=== PATIENT | female | born 1940 | race Caucasian/White ===

== ENCOUNTER 2023-09-19 15:25 | Inpatient (IN) | payer OTHER, SELFPAY ==
[2023-09-19] VITALS (8 sets, daily range): BP systolic 104–136; BP diastolic 58–86; BMI 21.9
[2023-09-19 11:08] LABS: Glucose - Point of Care 94 mg/dl (70-99)
--- NOTE | 2023-09-19 11:08 | ED.GENMED ---
History of Present Illness
General
Chief Complaint: Change in Mental Status
Source: patient, records and other (Bedside RN bedside RN)
Time Seen by Provider: 09/19/23 10:57
History of Present Illness
History of Present Illness:
This patient is an 83-year-old female who presents emergency department via medics from home. She has a history of dementia and therefore history is somewhat limited. Prior records were reviewed. As per bedside RN, she was given report that
patient had a fall 2 days ago. She is not on anticoagulants. Is unclear if she sought medical care at that time. For the last day and a half patient has been noted to be altered with drowsiness and mumbling. Patient denies any specific
complaints here although she gives just one-word answers to my questions and does not fully follow all commands.
Past History
Past History
ED Past Medical History: CAD, Hypothyroidism and Other (diverticulitis, dementia)
ED Past Surgical History: None
Social History
Tobacco: Non-smoker
Alcohol: None
Drug: None
Personal:
Living: with family
Family History
Family History: Other
Phy Exam
Physical Exam
Physical Exam:
GENERAL: Awake but drowsy, in no apparent distress
EYE: pupils equal and reactive, no objective photophobia, no deviation noted but does not follow commands to demonstrate EOMI intact
NECK: Supple, no significant adenopathy, no midline tenderness.
ENT: o/p clr, mm dry, there is a growth noted at the hard palate, resolving bruising noted in the superior aspect of the periorbital area bilaterally otherwise no signs of head or facial trauma noted on exam
CARDIAC: Regular rate and rhythm .
LUNGS: Clear breath sounds bilaterally, no acute respiratory distress, no wheezes/rales/rhonchi
ABDOMEN: Soft, without focal tenderness, no r/g
NEUROLOGICAL: awake but drowsy, does not follow some commands (ex f to n), maee but motor 3-3+/5 throughout, sens intact, speech soft but clear
SKIN: Warm and dry, skin intact.
MUSCULOSKELETAL: No edema, well perfused.
PSYCH: drowsy but appropriate
Course
Orders/Labs/Results
Orders:
Orders
09/19/23 Breakfast
Regular
At Your Request: Full Participation
Does patient need a safe tray?: No
Comment: Allow oral intake if awake - Required to be fed
09/19/23 10:58
Electrocardiogram (*1) Urgent
Reason for Study: CAD
09/19/23 10:59
EKG- Treatment ONCE
09/19/23 11:07
CT Cervical Spine W/o Iv Contr Stat
Comment:
Reason For Exam: fall
CT Head W/o Iv Contrast Urgent
Comment:
Reason For Exam: reported fall
09/19/23 11:20
Cardiac Monitoring- Treatment ONCE
Pelvis, 1 or 2 Views CR [CR Pelvis - 1 Or 2 Views ] Urgent
Comment:
Reason For Exam: L ant bruising
09/19/23 11:32
Complete Blood Count/With Diff Urgent
Comprehensive Metabolic Panel Urgent
Troponin I Urgent
09/19/23 12:10
Urinalysis Reflex To Culture Urgent
Date Specimen was Collected: 09/19/23
Time Specimen was Collected: 12:08
Urine Microscopic Reflex Cult Urgent
Urine Culture Urgent
VIKAS Source: U
Specimen Description:
Date Specimen was Collected: 09/19/23
Time Specimen was Collected: 12:08
09/19/23 13:45
Cefepime HCl [Maxipime] 2,000 mg IV NOW STA
09/19/23 14:51
Admit/Transfer Patient As Directed
Co-Sign Provider:
Level of Care: Inpatient admission
Assign to:: Medical/Surgical
Physician / Group: Haresh
Diagnosis: TME/UTI
Reason for Hospitalization: IV abx
Expected length of stay greater than two midnights?: Yes
ELOS- Estimated Length of Stay in days: 3
I certify the patient meets the requirements for IP care: Yes
PRN Pain Medication Management As Directed
May give lesser potent ordered pain med per pt: Yes
preference::
Protocol:: Medication orders for pain may be administered in a
manner that supports deferring to patient preference
when the pt is:
- Requesting an ordered lesser potent pain medication.
Least to most potent pain medications are defined
as: acetaminophen < NSAID < tramadol < opioids
(morphine, oxycodone, hydromorphone).
- Requesting a lesser dose of the same medication IF
ORDERED.
- Requesting a less intrusive route of administration
if both routes are prescribed by the provider (PO <
IV).
09/19/23 14:53
Code Status As Directed
Resuscitation Status: Full Code
09/19/23 16:51
0.9% Sodium Chloride 1000 ml [Nss] 1,000 ml IV 75 mls/hr
Acetaminophen [Tylenol] 650 mg PO Q6HPRN PRN
Gabapentin [Neurontin] 100 mg PO TID
Lorazepam [Ativan] 0.5 mg PO TID
Risperidone [Risperdal] 0.25 mg PO TID
09/19/23 16:51
Activity As Directed
Activity Level: Out of Bed- Chair
I&O [Intake/ Output] As Directed
Frequency: q12h
Pneumatic Compression Sleeves As Directed
Type: Knee high
Vital Signs As Directed
Frequency: Per unit guidelines
Weight As Directed
Frequency: Daily
Ot Eval And Treat Routine
Pt Eval And Treat Routine
Activity Level: Out of Bed-Early Mobility
DX Deep Vein Thrombosis Video Routine
09/19/23 20:00
CefTRIAXone [Rocephin] 1,000 mg IV Q24H
09/19/23 22:00
Atorvastatin [Lipitor] 20 mg PO HS
Mirtazapine [Remeron] 15 mg PO HS
09/20/23 06:00
Levothyroxine [Synthroid] 50 mcg PO DAILY @ 0600
09/20/23 08:00
Pantoprazole [Protonix] 40 mg PO DAILY
Polyethylene Glycol Powder [Miralax] 17 grams PO DAILY
09/20/23 08:25
Basic Metabolic Panel IN AM
Complete Blood Count/No Diff IN AM
09/20/23 11:00
Lactobac/Bifidobac [Visbiome] 1 cap PO DAILY@1100
Abnormal Lab Results
09/19/23 09/19/23
11:32 12:10
RBC 3.71 L 10^6/uL
(4.20-5.40)
Hgb 11.5 L g/dL
(12.0-16.0)
Hct 34.9 L %
(37.0-47.0)
Abs Immat Gran (auto) 0.1 H 10^3/uL
(0-0.05)
Absolute Neuts (auto) 8.3 H 10^3/uL
(1.4-6.5)
Absolute Lymphs (auto) 0.8 L 10^3/uL
(1.2-3.4)
Absolute Monos (auto) 0.9 H 10^3/uL
(0.1-0.6)
Immature Gran % 0.8 H %
(0-0.5)
Neutrophils % 81.0 H %
(42.2-75.2)
Lymphocytes % 8.1 L %
(20.5-51.1)
Chloride 113 H mmol/L
(98-107)
Total Protein 5.8 L g/dl
(6.3-8.2)
Albumin 3.2 L g/dl
(3.5-5.0)
Urine Ketones Trace A
(Negative)
Ur Occult Blood Reflex Trace A
(Negative)
Urine Bilirubin 1+ A
(Negative)
Urine Urobilinogen 2+ A
(Neg - 1+)
Leukocyte Esterase Rfl 1+ A
(Negative)
Urine RBC 3-6 A /HPF
(0-2)
Urine WBC (Reflex) 21-25 A /HPF
(0-5)
Urine Bacteria (Reflex) Many A
(Negative)
09/19/23 11:32
09/19/23 11:32
Vital Signs
Initial and Last Documented VS:
Initial Vital Signs
Temp Pulse Resp BP Pulse Ox
98.3 F 96 16 132/74 95
09/19/23 11:04 09/19/23 11:04 09/19/23 11:04 09/19/23 11:04 09/19/23 11:04
Last Documented Vital Signs
Temp Pulse Resp BP Pulse Ox
99.1 F 67 18 126/70 99
09/20/23 08:00 09/20/23 08:00 09/20/23 08:00 09/20/23 08:00 09/20/23 08:00
*Critical Care Note
Total Time (30-74mins, 75-104mins- exclusive of procedures): Not Applicable
Update Note
Update Note:
Patient presents to the Emergency Department with ___reported fall
Number and Complexity of Problems Addressed at the Encounter
� Chronic conditions affecting care:
� Acute Exacerbation and/or Progression of Chronic Illness:
� Differential Diagnosis includes: But not limited to electrolyte disorder, dehydration, intracranial hemorrhage, subdural hematoma, epidural hematoma, CVA, etc. etc.
Amount and/or Complexity of Data to be Reviewed and Analyzed
� I performed an independent evaluation of and my interpretation is:
EKG: Read by me, normal sinus rhythm, normal rate, normal axis, no acute ischemia
CT:No acute osseous abnormality of the cervical spine. nad head
Xrays:
Laboratory Studies:nl wbc with elevation of neutrophils, u/a suspic for infx
Other:
� Review of other/old records reveals: Discharge summary from June 2022 reviewed at that time patient was admitted for a supracondylar fracture, treatment was conservative
� Clinical information was obtained by an independent historian: and son now at bedside. They state that 2 mornings ago he was trying to assist her to the bathroom and she fell down, striking her head on the trim of the
door. No loss of consciousness. He was able to get her back up again. Since yesterday morning however he notes increasing global weakness and decreased p.o. intake. She denies any specific complaints to him. He did notice a bruise at the left
anterior pelvic area which he suspects is related to the walker banging into her. He just finished giving her ?2 wks of amoxicillin 500 mg big about one week ago for presumed uti (no ua obtained, urine was 'cloudy')
� Prescriptions/Medications Considered but not given:
� Further testing considered but not performed:
Risk of Complications and/or Morbidity or Mortality of Patient Management
� Social determinants of health affecting care:
� Discussion with other providers (PCP, Hospitalists, Consultants, etc):TT to hospitalist for admission for uti with ms change
� Escalation of care including admission/observation vs risk of discharge considered:
ED Attending Note
-
Portions of this chart may have been created with voice recognition software.� Occasional wrong word or��sound alike� substitutions may have occurred due to the inherent limitations of voice recognition software.
Discharge Plan
Departure
Patient Disposition: Admit
Date of Disposition: 09/19/23
Time of Disposition: 13:45
Presentation/result/management discussed w/ accepting MD/DO: Hospitalist
Condition: Fair
Discharge Problem:
Acute UTI
Interventions
Interventions:
*Risk Screen - Suicide Last Done: 09/19/23 11:05
*General Assessment Last Done: 09/19/23 11:05
*Neglect/Abuse Screening Last Done: 09/19/23 11:05
ED- Fall Risk Assessment Last Done: 09/19/23 16:35
*ED COVID-19 Vaccine History Last Done: 09/19/23 11:05
*Nursing Disposition Last Done: 09/19/23 16:35
ED- Pulmonary Assessment Last Done: 09/19/23 16:35
ED-Psychological Assessment Last Done: 09/19/23 16:35
ED- Neurological Assessment Last Done: 09/19/23 11:06
ED- Cardiac Assessment Last Done: 09/19/23 16:35
ED Swallowing Screen Last Done: 09/19/23 11:06
Discharge Date and Time
Discharge Date/Time: 09/19/23 16:41
[2023-09-19 11:42] LABS: % Basophils 0.4 % (0-2); % Eosinophils 0.8 % (0-6); % Immature Granulocytes 0.8 % (0-0.5); % Lymphocytes 8.1 % (20.5-51.1); % Monocytes 8.9 % (1.7-9.3); Absolute Eosinophils 0.1 10^3/uL (0-0.7); Absolute Immature Granulocytes 0.1 10^3/uL (0-0.05); Absolute Lymphocytes 0.8 10^3/uL (1.2-3.4); Absolute Monocytes 0.9 10^3/uL (0.1-0.6); Absolute Neutrophils 8.3 10^3/uL (1.4-6.5); Hematocrit 34.9 % (37.0-47.0); Hemoglobin 11.5 g/dL (12.0-16.0); Mean Corpuscular Volume 94.1 fL (81.0-99.0); Mean Platelet Volume 9.5 fL (7.4-10.4); Nucleated Red Blood Cells % 0 %; Platelet Count 381 10^3/uL (130-400); Red Blood Cell Count 3.71 10^6/uL (4.20-5.40); Red Cell Dist. Width 12.6 % (11.5-14.5); White Blood Cell Count 10.2 10^3/uL (4.8-10.8)
[2023-09-19 12:03] LABS: ALT (SGPT) 11 U/L (0-35); AST (SGOT) 24 U/L (14-36); Albumin 3.2 g/dl (3.5-5.0); Alkaline Phosphatase 101 U/L (38-126); Blood Urea Nitrogen 16 mg/dl (7-17); Calcium 8.8 mg/dl (8.4-10.2); Carbon Dioxide 23 mmol/L (22-30); Chloride 113 mmol/L (98-107); Glucose 97 mg/dl (70-99); Potassium 3.6 mmol/L (3.5-5.1); Sodium 144 mmol/L (135-145); Total Bilirubin 0.9 mg/dl (0.2-1.3); Total Protein 5.8 g/dl (6.3-8.2); eGFR > 60.00
[2023-09-19 12:04] LABS: Troponin I < 0.012 ng/ml
[2023-09-19 12:28] LABS: Urine Albumin Trace (Neg - Trace); Urine Bilirubin 1+ (Negative); Urine Character Clear (Clear); Urine Color Yellow; Urine Glucose Negative (Negative); Urine Ketone Trace (Negative); Urine Leukocyte 1+ (Negative); Urine Nitrite Negative (Negative); Urine Occult Blood Trace (Negative); Urine Urobilinogen 2+ (Neg - 1+)
[2023-09-19 13:11] LABS: Urine Squamous Cell 0-2 /LPF (Few)
[2023-09-19 13:12] LABS: Urine Bacteria Many (Negative); Urine White Cell 21-25 /HPF (0-5)
[2023-09-19] MEDS: MAXIPIME 2000 MG IV (13:55)
--- NOTE | 2023-09-19 14:21 | HPS.HSE ---
Addendum entered and electronically signed by Breanna Hutson MD 09/19/23 15:38:
I saw and examined the patient.
The PICKING MACHINE OPERATOR HELPER or PA's note was reviewed and I agree with the note.
Comment:
83 y/o female with a PMH of advanced dementia, hypothyroid, and history of frequent falls who reports to the ED for change in mental status. History is limited by patient's history of dementia. Patient's provided the history. He states that
over the past couple days she has been eating and drinking less. Yesterday she refused to take some of her medications. She has also had a change in mental status, been more lethargic, and been having difficulty walking. She recently just finished a
14 day course of amoxicillin last week for a UTI. Her states that 2 days ago she fell and hit heard head on the way to the bathroom. Her says she has been using a bedside commode since the fall. There are no reports of fevers.
Physical Exam
General: No Apparent Distress and Comfortable
HEENT: NormoCephalic and Other (Bruising over bilateral eyebrows). Dry MM>
Respiratory: Clear and Non Labored Respirations
Cardiac: S1/S2 and Regular Rhythm
GI: Soft and Non Tender
Rectal: No bleeding
Musculoskeletal: No Clubbing, No Cyanosis and No Edema
Skin: Warm and Dry
Neuro: Sedated (Opens eyes to name)
TME secondary to dehydration and possible worsening dementia and UTI
Give IVF
Supportive care
MOntior temp curve
-Continue ceftriaxone
-Await urine culture
CT head no acute findings.
Severe Dementia with prior history of sun-downing
-Continue lorazepam, risperidone and mirtazapine as prior to admission, but hold for sedation
Patient is very limited with 100% dependency on her caregiver which is the in this case. Most of the time, she has to be fed, cleaned and groomed at home by her . seems to be willing to continue care at home and wanting to
provide 24/7 private care at home. reported that his family would respect his decisions to maintain care at home.
Will consult social service to provide help as possible
From previous admission, this placement issue was brought before and decision was made by family to take patient home. reported that he was not happy with care at SNF before because of poor hygiene and care experience at nursing homes.
Hyperlipidemia
-Continue statin
Hypothyroidism
-Continue levothyroxine
GERD
-Continue Protonix
Osteoarthritis
-Continue gabapentin for pain
DVT proph: SCDs
Code Status: Full Code
Total time spent to see the patient, examine the patient on the floor, review data and lab results, discuss treatment plan with patient, at bed side, ER doctor, nursing staff around 75 minutes
Original Note:
Family Physician
-
Family Physician: Tony Barber
Chief Complaint
-
Weakness and Lethargy
History of Present Illness
Patient is an 83 y/o female with a PMH of advanced dementia, hypothyroid, and history of frequent falls who reports to the ED for change in mental status. History is limited by patient's history of dementia. Patient's provided the history.
He states that over the past couple days she has been eating and drinking less. Yesterday she refused to take some of her medications. She has also had a change in mental status, been more lethargic, and been having difficulty walking. She recently
just finished a 14 day course of amoxicillin last week for a UTI. Her states that 2 days ago she fell and hit heard head on the way to the bathroom. Her says she has been using a bedside commode since the fall. There are no reports
of fevers.
Medical History
Past Medical History
Past Medical History: Reports Other
Additional Past Medical History:
Severe Dementia
Hyperlipidemia
Hypothyroidism
GERD
Past Surgical History: Reports Other
Additional Past Surgical History:
Bilateral Breast Surgery
Vein Stripping Right Leg
Exploratory Laparotomy
Social History
Tobacco: Non-smoker
Alcohol: None
Personal:
Living: With Family
Family History
Family History: Not pertinent
Allergies / Home Medications
Allergies reflects when Allergies were last updated in [employer].
Home Medications with original date entered in [employer]
Allergy/Medication List:
Allergies
Allergy/AdvReac Type Severity Reaction Status Date / Time
codeine [Codeine] Allergy Nausea Verified 07/08/22 15:04
levofloxacin [From Levaquin] Allergy diarrhea Verified 07/08/22 15:04
metronidazole [From Flagyl] Allergy diarrhea Verified 07/08/22 15:04
Metronidazole HCl Allergy diarrhea Verified 07/08/22 15:04
[From Flagyl]
propoxyphene HCl Allergy upset Verified 07/08/22 15:04
[From Darvon] stomach
Home Medications
aspirin 81 mg tablet,delayed release 81 mg PO HS Blood clot prevention/tx 05/25/14
levothyroxine 50 mcg tablet 50 mcg PO DAILY Thyroid 05/25/14
sucralfate 1 gram tablet 1 g PO BID@1100,1600 Gastrointestinal issue 07/16/20
Lactobac no.2-Bifidobac no.1-S. thermo 112.5 billion cell capsule (Visbiome) 1 cap PO DAILY@1100 Supplement 07/08/22
calcium carbonate (Calcium 600) 600 mg PO DAILY@1100 Supplement 07/08/22
simvastatin 40 mg tablet (Zocor) 40 mg PO HS High cholesterol 07/08/22
Unknown Bowel Med 1 dose PO DAILYPRN PRN constipation, no bm 2 days 09/19/23
acetaminophen 325 mg tablet (Tylenol) 650 mg PO Q6HPRN PRN mild pain 09/19/23
gabapentin 100 mg capsule 100 mg PO TID Pain 09/19/23
lorazepam 0.5 mg tablet 0.5 mg PO TID Mental Health/Anxiety 09/19/23
mirtazapine 15 mg tablet 15 mg PO HS Neurological Condition 09/19/23
omeprazole 20 mg capsule,delayed release 20 mg PO DAILY Gastrointestinal Issue 09/19/23
risperidone 0.25 mg tablet 0.25 mg PO TID Neurological Condition 09/19/23
Review of Systems
-
Unable to obtain full review of systems at this time due to: Dementia
Physical Exam
Vital Signs
Vital Signs
Temp Pulse Resp BP Pulse Ox
98.3 F 75 16 124/63 95
09/19/23 11:04 09/19/23 14:01 09/19/23 14:07 09/19/23 14:01 09/19/23 14:07
Physical Exam
General: No Apparent Distress and Comfortable
HEENT: NormoCephalic and Other (Bruising over bilateral eyebrows)
Respiratory: Clear and Non Labored Respirations
Cardiac: S1/S2 and Regular Rhythm
GI: Soft and Non Tender
Rectal: Deferred by Provider
Musculoskeletal: No Clubbing, No Cyanosis and No Edema
Skin: Warm and Dry
Neuro: Sedated (Opens eyes to name)
Laboratory Results
-
09/19/23 11:32
09/19/23 11:32
Laboratory Results
Total Bilirubin 0.9 mg/dl (0.2-1.3) 09/19/23 11:32
AST 24 U/L (14-36) 09/19/23 11:32
ALT 11 U/L (0-35) 09/19/23 11:32
Alkaline Phosphatase 101 U/L (38-126) 09/19/23 11:32
Troponin I < 0.012 ng/ml 09/19/23 11:32
Data Reviewed
-
Diagnostic Radiology: Report Reviewed by me
CT Scan: Report Reviewed by me
Lab Data: Labs Reviewed by me
Impression/Plan
-
TME secondary to UTI
-Continue ceftriaxone
-Await urine culture
Severe Dementia with prior history of sun-downing
-Continue lorazepam, risperidone and mirtazapine as prior to admission, but hold for sedation
Hyperlipidemia
-Continue statin
Hypothyroidism
-Continue levothyroxine
GERD
-Continue Protonix
Osteoarthritis
-Continue gabapentin for pain
DVT proph: SCDs
Code Status: Full Code
[2023-09-19] MEDS: NSS 1000 IV (18:03)
[2023-09-19] MEDS: NEURONTIN 100 MG PO ×2 (18:03→21:06)
[2023-09-19] MEDS: RISPERDAL 0.25 MG PO ×2 (18:03→21:06)
[2023-09-19] MEDS: ATIVAN 0.5 MG PO ×2 (18:03→21:19)
[2023-09-19] MEDS: STERILE WATER FOR INJECTION 10 ML IV (19:33)
[2023-09-19] MEDS: ROCEPHIN 1000 MG IV (19:33)
[2023-09-19] MEDS: LIPITOR 20 MG PO (21:06)
[2023-09-19] MEDS: REMERON 15 MG PO (21:09)
[2023-09-20] MEDS: SYNTHROID 50 MCG PO (05:28)
[2023-09-20 06:00] VITALS: BMI 21.6
[2023-09-20 08:00] VITALS: BP 126/70
[2023-09-20 08:46] LABS: Hematocrit 35.7 % (37.0-47.0); Mean Corp Hgb Conc. 33.6 g/dL (33.0-37.0); Mean Corpuscular Hgb 31.8 pg (27.0-31.0); Mean Corpuscular Volume 94.7 fL (81.0-99.0); Mean Platelet Volume 9.7 fL (7.4-10.4); Platelet Count 388 10^3/uL (130-400); Red Blood Cell Count 3.77 10^6/uL (4.20-5.40); Red Cell Dist. Width 12.6 % (11.5-14.5); White Blood Cell Count 12.9 10^3/uL (4.8-10.8)
[2023-09-20 09:07] LABS: Blood Urea Nitrogen 14 mg/dl (7-17); Calcium 8.9 mg/dl (8.4-10.2); Carbon Dioxide 19 mmol/L (22-30); Chloride 114 mmol/L (98-107); Estimated Creatinine Clearance 52 ml/min; Glucose 93 mg/dl (70-99); Sodium 145 mmol/L (135-145); eGFR > 60.00
[2023-09-20] MEDS: NEURONTIN 100 MG PO (09:36)
[2023-09-20] MEDS: MIRALAX 17 GRAMS PO (09:37)
[2023-09-20 09:40] VITALS: BP 117/96; PULSE 69; O2SAT 96
[2023-09-20] MEDS: NSS 1000 IV ×2 (09:40→22:14)
[2023-09-20] MEDS: RISPERDAL PO (09:50)
[2023-09-20] MEDS: ATIVAN PO (09:50)
[2023-09-20 09:52] VITALS: BP 117/96; PULSE 69; O2SAT 96
--- NOTE | 2023-09-20 11:11 | W.PN.HOSP.TC ---
Today's Communication/Plan
-
c/w care for UTI and encephalopathy
c/w IVF
Encourage oral intake
c/w bladder scan
Consulted social service
Assessment / Plan
Assessment / Plan
Physical Exam
General: No Apparent Distress and Comfortable
HEENT: Normocephalic and Other (mild bruising over bilateral eyebrows). Dry MM.
Respiratory: Clear and Non Labored Respirations
Cardiac: S1/S2 and Regular Rhythm
GI: Soft and Non Tender
Rectal: No bleeding
Musculoskeletal: No Clubbing, No Cyanosis and No Edema
Skin: Warm and Dry
Neuro: Sedated (Opens eyes to name), did not follow commands.
Psych: lethargic
#TME secondary to dehydration/ worsening dementia and UTI
Still lethargic
c/w mild IVF
Encourage oral intake
c/w Supportive care
Monitor temp curve
-Continue ceftriaxone
-Await urine culture and blood culture
CT head no acute findings.
# UTI with E coli
Prior UTI with same microbe
will c/w IV
Add bladder scan to rule out retention
Normal renal function
c/w mild IVF
#Severe Dementia with prior history of sun-downing
Failure to thrive
-Continue lorazepam, risperidone and mirtazapine as prior to admission, but hold for sedation
Patient is very limited with 100% dependency on her caregiver which is the in this case. Most of the time, she has to be fed, cleaned and groomed at home by her . seems to be willing to continue care at home and wanting to
provide 24/7 private care at home. reported that his family would respect his decisions to maintain care at home.
Will consult social service to provide help as possible
From previous admission, this placement issue was brought before and decision was made by family to take patient home. reported that he was not happy with care at SNF before because of poor hygiene and care experience at nursing homes.
# Severe protein-caloric malnutrition
Chronic poor oral intake, helps feeding her, related to dementia
# Multiple falls, recurrent head injuries from falls
consulted social service
expressed his intention to continue care at home with private healthcare economics manager. He reported that his children are supportive of his decisions.
Hyperlipidemia
-Continue statin
Hypothyroidism
-Continue levothyroxine
GERD
-Continue Protonix, change to IV
Osteoarthritis
-Continue gabapentin for pain
DVT proph: SCDs
Code Status: Full Code
Total time spent to see the patient, examine the patient on the floor, review data and lab results, discuss treatment plan with patient, nursing staff around 55 minutes
Anticipated Discharge: > 48 hours
Subjective/Interval History
-
Date of Service: September 20, 2023
Still weak and mildly febrile
Objective Data
-
Labs:
Laboratory Results
09/20/23
08:25
WBC 12.9 H
Hgb 12.0
Hct 35.7 L
Plt Count 388
Sodium 145
Potassium 4.0
Chloride 114 H
Carbon Dioxide 19 L
BUN 14
Creatinine 0.6
Glucose 93
Calcium 8.9
Vital Signs:
Vital Signs
Temp Pulse Resp BP Pulse Ox
99.1 F 67 18 126/70 99
09/20/23 08:00 09/20/23 08:00 09/20/23 08:00 09/20/23 08:00 09/20/23 08:00
I&O
09/19/23 09/20/23 09/21/23
06:59 06:59 06:59
Intake Total 900 / 900
Balance 900 / 900
--- NOTE | 2023-09-20 11:42 | CM ---
Addendum entered by Carolann Reyes 09/20/23 14:27:
CM spoke with patients daughter, Patricia, discussed recommendation of 20/09 care. Patricia reports patient has caregivers 4-5 days a week, 4 hours a day. Patricia is agreeable to receive a list of private duty caregivers, in unsure how quickly she can get it
set up. Patricia reports her father is not agreeable to send patient to SNF as patients last experience was horrible. Patricia reports she is currently in a boot as she broke her ankle, reports she cannot lift her mother if she were to fall. Patricia
understands recommendation of 20/09 care. CM emailed list to [email or web address]. CM provided list to patients along with brochures for private care.
Original Note:
Patient seen asleep bedside, initial assessment completed by . Patient resides with in a multiple story home, patient resides on the first floor, two steps to enter. Patient has a commode and RW at home, has private duty caregivers
7am-7pm, is looking into evening caregivers. reports that patient was in rehab at [facility] and he will never send patient back to any SNF. Patients PCP Dr. Barber, pharmacy [facility] in [place], confirms prescription
coverage. reports they have a daughter who lives in [place] who comes 1-2 times a week, have a son who is a support as well. reports daughter is taking care of all caregiver services. CM discussed with PT recommendations of
24/7 care. CM will call daughter to provide information for private caregiver if needed. CM will continue to follow for all discharge planning needs.
Plan; return home with caregivers and family support.
[2023-09-20] MEDS: NSS (PRESERVATIVE FREE) 10 ML IV (11:46)
[2023-09-20] MEDS: PROTONIX IV 40 MG IV (11:48)
[2023-09-20] MEDS: VISBIOME PO (11:48)
[2023-09-20 16:10] VITALS: BP 133/72
[2023-09-20] MEDS: RISPERDAL 0.25 MG PO ×2 (17:13→22:14)
[2023-09-20] MEDS: ATIVAN 0.5 MG PO ×2 (17:13→22:14)
[2023-09-20] MEDS: SENNA SYRUP 8.8 MG PO (17:23)
[2023-09-20] MEDS: ROCEPHIN 1000 MG IV (20:05)
[2023-09-20] MEDS: STERILE WATER FOR INJECTION 10 ML IV (20:05)
[2023-09-20] MEDS: TYLENOL 650 MG PO (20:19)
[2023-09-20] MEDS: REMERON 15 MG PO (22:14)
[2023-09-20] MEDS: LIPITOR 20 MG PO (22:14)
[2023-09-20 23:11] VITALS: BP 117/58
[2023-09-21] MEDS: SYNTHROID 50 MCG PO (04:52)
[2023-09-21 05:03] VITALS: BMI 22.2
[2023-09-21 07:00] VITALS: BP 124/73
[2023-09-21] MEDS: PROTONIX IV 40 MG IV (08:12)
[2023-09-21] MEDS: RISPERDAL 0.25 MG PO ×2 (08:13→21:40)
[2023-09-21] MEDS: MIRALAX 17 GRAMS PO (08:13)
[2023-09-21] MEDS: NSS (PRESERVATIVE FREE) 10 ML IV (08:13)
[2023-09-21] MEDS: ATIVAN 0.5 MG PO (08:13)
--- NOTE | 2023-09-21 09:01 | W.PN.HOSP.TC ---
Today's Communication/Plan
-
c/w comfort feeding as tolerated
c/w IV Rocephin
c/w mild IVF
Trial of Senna
Assessment / Plan
Assessment / Plan
Physical Exam
General: No Apparent Distress and Comfortable
HEENT: Normocephalic and Other (mild bruising over bilateral eyebrows). Dry MM.
Respiratory: Clear and Non Labored Respirations
Cardiac: S1/S2 and Regular Rhythm
GI: Soft and Non Tender
Rectal: No bleeding
Musculoskeletal: No Clubbing, No Cyanosis and No Edema
Skin: Warm and Dry
Neuro: more alert today, almost non-verbal, did not follow commands.
Psych: less lethargic
#TME secondary to dehydration/ worsening dementia and UTI
Still lethargic
c/w mild IVF
Encourage oral intake
c/w Supportive care
Monitored temp curve, no fevers today
-Continue ceftriaxone
CT head no acute findings.
# UTI with E coli
Prior UTI with same microbe
will c/w IV Rocephin
Added bladder scan to rule out retention
Normal renal function
c/w mild IVF
# Constipation, c/w Senna
#Severe Dementia with prior history of sun-downing
Failure to thrive
-Continue lorazepam, risperidone and mirtazapine as prior to admission, but hold for sedation
Patient is very limited with 100% dependency on her caregiver which is the in this case. Most of the time, she has to be fed, cleaned and groomed at home by her . seems to be willing to continue care at home and wanting to
provide 24/7 private care at home. reported that his family would respect his decisions to maintain care at home.
Will consult social service to provide help as possible
From previous admission, this placement issue was brought before and decision was made by family to take patient home. reported that he was not happy with care at SNF before because of poor hygiene and care experience at nursing homes.
# Severe protein-caloric malnutrition
Chronic poor oral intake, helps feeding her, related to dementia
# Multiple falls, recurrent head injuries from falls
consulted social service
expressed his intention to continue care at home with private health care / medical job titles. He reported that his children are supportive of his decisions.
Hyperlipidemia
-Continue statin
Hypothyroidism
-Continue levothyroxine
GERD
-Continue Protonix, change to IV
Osteoarthritis
-Continue gabapentin for pain
DVT proph: SCDs
Code Status: Full Code
Total time spent to see the patient, examine the patient on the floor, review data and lab results, discuss treatment plan with patient, nursing staff around 55 minutes
Anticipated Discharge: 24 - 48 hours
Subjective/Interval History
-
Date of Service: September 21, 2023
No pain issues but pt is almost non-verbal
No fevers
Objective Data
-
Vital Signs:
Vital Signs
Temp Pulse Resp BP Pulse Ox
97.1 F 85 12 124/73 98
09/21/23 07:00 09/21/23 07:00 09/21/23 07:00 09/21/23 07:00 09/21/23 07:00
I&O
09/20/23 09/21/23 09/22/23
06:59 06:59 06:59
Intake Total 900 / 900 1220 / 1220
Balance 900 / 900 1220 / 1220
[2023-09-21] MEDS: NSS 1000 IV (11:28)
[2023-09-21] MEDS: VISBIOME 1 CAP PO (11:29)
--- NOTE | 2023-09-21 13:01 | CM ---
Patient seen bedside with spouse, discussed VN referral for additional services when patient is stable for discharge, spouse agreeable to VN. Spouse reports he has not spoken to his daughter yet in regards to 24/7 care. CM spoke with patients
daughter, Patricia, reports she has made multiple calls to private care agencies, is awaiting return call. Patients daughter inquiring about Hospice and if patient would be appropriate, TT sent to Hospitalist. CM will continue to follow for all
discharge planning needs.
Plan; home with spouse, needs 24/7 care set up, referral to [facility].
--- NOTE | 2023-09-21 14:30 | VNURNOTE ---
Home Health Liaison spoke with patient's daughter Patricia to discuss [facility] nurse/therapy, visits, schedule and homebound status. She is agreeable and understands that visits at home will be 2-3 x per week to assess and teach medical management. [facility]
contact number provided. Daughter is aware that [facility] will contact them for start of care within a few days after discharge from . Daughter also considering hospice and setting up 24h caregivers. CM aware. [facility] referral completed in [facility].
[2023-09-21 14:34] VITALS: BP 119/57; PULSE 71; O2SAT 97
[2023-09-21 15:18] VITALS: BP 117/70
[2023-09-21] MEDS: ATIVAN PO (17:40)
[2023-09-21] MEDS: RISPERDAL PO (17:40)
[2023-09-21] MEDS: STERILE WATER FOR INJECTION 10 ML IV (19:12)
[2023-09-21] MEDS: ROCEPHIN 1000 MG IV (19:12)
[2023-09-21] MEDS: LIPITOR 20 MG PO (21:39)
[2023-09-21] MEDS: REMERON 15 MG PO (21:39)
[2023-09-21] MEDS: ATIVAN 0.25 MG PO (21:39)
[2023-09-21 23:08] VITALS: BP 143/66
[2023-09-22] MEDS: NSS 1000 IV ×2 (01:51→14:03)
[2023-09-22 05:33] VITALS: BMI 22.0
[2023-09-22] MEDS: SYNTHROID 50 MCG PO (05:55)
[2023-09-22 07:00] VITALS: BP 120/62
[2023-09-22] MEDS: NSS (PRESERVATIVE FREE) 10 ML IV (08:27)
[2023-09-22] MEDS: ATIVAN 0.25 MG PO (08:27)
[2023-09-22] MEDS: MIRALAX 17 GRAMS PO (08:27)
[2023-09-22] MEDS: PROTONIX IV 40 MG IV (08:27)
[2023-09-22] MEDS: RISPERDAL PO ×2 (08:28→08:43)
[2023-09-22 08:59] LABS: Hematocrit 37.1 % (37.0-47.0); Hemoglobin 12.7 g/dL (12.0-16.0); Mean Corp Hgb Conc. 34.2 g/dL (33.0-37.0); Mean Corpuscular Hgb 31.7 pg (27.0-31.0); Mean Corpuscular Volume 92.5 fL (81.0-99.0); Mean Platelet Volume 9.6 fL (7.4-10.4); Platelet Count 430 10^3/uL (130-400); Red Blood Cell Count 4.01 10^6/uL (4.20-5.40); Red Cell Dist. Width 12.2 % (11.5-14.5); White Blood Cell Count 11.3 10^3/uL (4.8-10.8)
[2023-09-22 09:44] LABS: Blood Urea Nitrogen 8 mg/dl (7-17); Carbon Dioxide 21 mmol/L (22-30); Chloride 109 mmol/L (98-107); Estimated Creatinine Clearance 52 ml/min; Glucose 84 mg/dl (70-99); Potassium 3.8 mmol/L (3.5-5.1); Sodium 139 mmol/L (135-145); eGFR > 60.00
--- NOTE | 2023-09-22 09:57 | HOSPNOTE ---
Spoke with daughter Patricia and explained hospice and the philosophy. She will speak with her Dad but feels her Dad is quite not ready for hospice. I left my number to call back with any further questions or concerns. Case management aware.
--- NOTE | 2023-09-22 10:16 | W.PN.HOSP.TC ---
Today's Communication/Plan
-
Holding Risperdal and ATC Ativan
c/w IV Abx
Change to IV Ativan PRN
Hospice consult upon dc ( home hospice). Likely dc in am ( Tuesday)
Assessment / Plan
Assessment / Plan
Physical Exam
General: No Apparent Distress and Comfortable
HEENT: Normocephalic and Other (mild bruising over bilateral eyebrows). Dry MM.
Respiratory: Clear and Non Labored Respirations
Cardiac: S1/S2 and Regular Rhythm
GI: Soft and Non Tender
Rectal: No bleeding
Musculoskeletal: No Clubbing, No Cyanosis and No Edema
Skin: Warm and Dry
Neuro: awake, + stiffness, almost non-verbal, did not follow commands.
Psych: less lethargic
#TME secondary to dehydration/ worsening dementia and UTI
Still lethargic and stiffness noted
c/w mild IVF
Stop Risperdal and change Ativan to PRN
Encourage oral intake
c/w Supportive care
Monitored temp curve, no fevers
-Continue ceftriaxone
CT head no acute findings.
# UTI with E coli
Prior UTI with same microbe
will c/w IV Rocephin
Added bladder scan to rule out retention
Normal renal function
c/w mild IVF
# Constipation, c/w Senna
#Severe Dementia with prior history of sun-downing
Failure to thrive
-Continue lorazepam, risperidone and mirtazapine as prior to admission, but hold for sedation
Patient is very limited with 100% dependency on her caregiver which is the in this case. Most of the time, she has to be fed, cleaned and groomed at home by her . seems to be willing to continue care at home and wanting to
provide 24/7 private care at home. reported that his family would respect his decisions to maintain care at home.
Will consult social service to provide help as possible
From previous admission, this placement issue was brought before and decision was made by family to take patient home. reported that he was not happy with care at SNF before because of poor hygiene and care experience at nursing homes.
# Severe protein-caloric malnutrition
Chronic poor oral intake, helps feeding her, related to dementia
# Multiple falls, recurrent head injuries from falls
consulted social service
expressed his intention to continue care at home with private career portals teacher and now agreed to hospice care. He reported that his children are supportive of his decisions.
Hyperlipidemia
-Continue statin
Hypothyroidism
-Continue levothyroxine
GERD
-Continue Protonix, change to IV
Osteoarthritis
-Hold gabapentin due to lethargy
DVT proph: SCDs
Code Status: I d/w , explained the concept of full code/ DNR. Has very poor quality of life with advanced dementia. I do not recommend CPR/chest compressions. According to the , her living wishes included no ventilatory support.
He agreed to do DNR and pursue outpatient hospice care. Discussed with caseworker protective services. said he would be one to make decisions and not the children.
Total time spent to see the patient, examine the patient on the floor, review data and lab results, discuss treatment plan with patient, nursing staff around 55 minutes
Anticipated Discharge: Within 24 hours
Subjective/Interval History
-
Date of Service: September 22, 2023
No fevers.
lethargic
Objective Data
-
Labs:
Laboratory Results
09/22/23
08:48
WBC 11.3 H
Hgb 12.7
Hct 37.1
Plt Count 430 H
Sodium 139
Potassium 3.8
Chloride 109 H
Carbon Dioxide 21 L
BUN 8
Creatinine 0.6
Glucose 84
Calcium 9.0
Vital Signs:
Vital Signs
Temp Pulse Resp BP Pulse Ox
99.2 F 74 16 120/62 99
09/22/23 07:00 09/22/23 07:00 09/22/23 07:00 09/22/23 07:00 09/22/23 07:00
I&O
09/21/23 09/22/23 09/23/23
06:59 06:59 06:59
Intake Total 1220 / 1220 960 / 960
Balance 1220 / 1220 960 / 960
[2023-09-22] MEDS: VISBIOME PO (10:38)
--- NOTE | 2023-09-22 12:14 | CM ---
CM spoke with patients daughter, Patricia, who spoke with Hospice. Per Patricia, her father has been upset that past few days and will discuss hospice as an option tonight with his daughter. Daughter feels that at this time her father is likely not ready
for Hospice but she has Hospice information if necessary. Daughter reports her father did sign paperwork for [facility] to start 24/7 care when patient is discharged. Patient seen bedside with , inquiring about VN services
upon discharge. CM discussed referral has been made. CM will continue to follow for all discharge planning needs.
Plan; home with VN vs Hospice, family to discuss tonight, with 24/7 care from [facility].
--- NOTE | 2023-09-22 14:19 | PN.CDI ---
Addendum entered and electronically signed by Breanna Hutson MD 09/22/23 15:18:
UTI Only, Without Systemic Illness
Original Note:
CDI
- -
CDI:
Physician Documentation Request
Admit Date: 09/19/23 15:25
Dear Doctor Haresh,
Clinical Indicators:
Patient admitted with UTI and TME.
HR on admission: 94-96
WBC trend:
09/19/23 09/20/23
11:32 08:25
WBC 10.2 12.9 H
Temp trend:
09/19/23
11:04 09/19/23
23:05 09/20/23
20:00
Temp 98.3 F 100.1 F 100.7 F H
Please clarify which of the following most accurately describes the status of the patient's infection:
Sepsis (please indicate if POA)
- Systemic manifestations of infection, with 2 or more SIRS criteria which include:
- Fever >100.4 degrees F or hypothermia < 96.8 degrees F
- Leukocytosis - WBC > 12,000 or leukopenia - WBC < 4,000 or > 10% bands
- Tachycardia > 90 beats per minute
- Tachypnea - RR > 20 breaths per minute or PaCO2 , 32mmHg
Source: Merck Manual 2013
UTI Only, Without Systemic Illness
Other, please specify
Use of terms such as suspected, likely, concern for, or probable (associated with a specific diagnosis that is being evaluated, monitored, or treated as if it exists) are acceptable and can be coded in the inpatient setting, when documented at the
time of discharge.
Thank you,
Lina Vines RN BSN
CDI Specialist
available via tiger text
Please use your independent medical judgment in providing your response.
[2023-09-22 15:00] VITALS: BP 138/89
[2023-09-22] MEDS: ROCEPHIN 1000 MG IV (19:39)
[2023-09-22] MEDS: STERILE WATER FOR INJECTION 10 ML IV (19:39)
[2023-09-22] MEDS: TYLENOL 650 MG PO (20:18)
[2023-09-22] MEDS: LIPITOR PO (22:41)
[2023-09-22] MEDS: REMERON PO (22:41)
[2023-09-22 23:25] VITALS: BP 119/56
[2023-09-23] MEDS: NSS 1000 IV ×2 (03:39→15:46)
[2023-09-23] MEDS: SYNTHROID PO ×2 (03:40→05:45)
[2023-09-23 05:09] VITALS: BMI 22.6
[2023-09-23 08:08] VITALS: BP 129/55
--- NOTE | 2023-09-23 08:53 | W.PN.HOSP.TC ---
Today's Communication/Plan
-
dc planning if services at home are set up
Bladder scan
IV ampicillin
Assessment / Plan
Assessment / Plan
Physical Exam
General: No Apparent Distress and Comfortable
HEENT: Normocephalic and Other (mild bruising over bilateral eyebrows). Dry MM.
Respiratory: Clear and Non Labored Respirations
Cardiac: S1/S2 and Regular Rhythm
GI: Soft and Non Tender
Rectal: No bleeding
Musculoskeletal: No Clubbing, No Cyanosis and No Edema
Skin: Warm and Dry
Neuro: awake, + stiffness, almost non-verbal, did not follow commands.
Psych: less lethargic
#TME secondary to dehydration/ worsening dementia and UTI
Still lethargic and stiffness noted
c/w mild IVF
Stopped Risperdal and changed Ativan to PRN
Encourage oral intake
c/w Supportive care
Monitored temp curve, no fevers
-Continue ceftriaxone
CT head no acute findings.
# UTI with E coli
Prior UTI with same microbe
will c/w IV Rocephin
WIll give Ampicillin for strep viridans.
Added bladder scan to rule out retention
Normal renal function
c/w mild IVF
# Constipation, c/w Senna
#Severe Dementia with prior history of sun-downing
Failure to thrive
-Continue lorazepam PRN and mirtazapine as prior to admission, but hold for sedation. Stopped Risperdal due to siffness.
Patient is very limited with 100% dependency on her caregiver which is the in this case. Most of the time, she has to be fed, cleaned and groomed at home by her . seems to be willing to continue care at home and wanting to
provide 24/7 private care at home. reported that his family would respect his decisions to maintain care at home.
Will consult social service to provide help as possible
From previous admission, this placement issue was brought before and decision was made by family to take patient home. reported that he was not happy with care at SNF before because of poor hygiene and care experience at nursing homes.
# Severe protein-caloric malnutrition
Chronic poor oral intake, helps feeding her, related to dementia
# Multiple falls, recurrent head injuries from falls
consulted social service
expressed his intention to continue care at home with private regular senior care provider and now agreed to hospice care. He reported that his children are supportive of his decisions.
Hyperlipidemia
-Continue statin
Hypothyroidism
-Continue levothyroxine
GERD
-Continue Protonix, change to IV
Osteoarthritis
-Hold gabapentin due to lethargy
DVT proph: SCDs
Code Status: I d/w , explained the concept of full code/ DNR. Has very poor quality of life with advanced dementia. I do not recommend CPR/chest compressions. According to the , her living wishes included no ventilatory support.
He agreed to do DNR and pursue outpatient hospice care. Discussed with shoe parts caser. said he would be one to make decisions and not the children.
Total time spent to see the patient, examine the patient on the floor, review data and lab results, discuss treatment plan with patient, nursing staff around 55 minutes
Anticipated Discharge: Within 24 hours
Subjective/Interval History
-
Date of Service: September 23, 2023
No fevers over night, she could not take her pills last night per nursing staff
Objective Data
-
Vital Signs:
Vital Signs
Temp Pulse Resp BP Pulse Ox
98.4 F 82 16 119/56 92
09/23/23 05:53 09/22/23 23:25 09/22/23 23:25 09/22/23 23:25 09/22/23 23:25
I&O
09/22/23 09/23/23 09/24/23
06:59 06:59 06:59
Intake Total 960 / 960 1020 / 1020
Balance 960 / 960 1020 / 1020
[2023-09-23] MEDS: MIRALAX PO (09:09)
[2023-09-23] MEDS: VISBIOME PO (09:09)
[2023-09-23] MEDS: PROTONIX IV 40 MG IV (09:10)
[2023-09-23] MEDS: NSS (PRESERVATIVE FREE) 10 ML IV (09:10)
--- NOTE | 2023-09-23 09:53 | HOSPNOTE ---
Spoke again with spouse and discussed hospice and the philosophy. The spouse is now in agreement and wishes for patient to go home with hospice. Once the patient is home we will admit onto hospice services. Equipment was ordered and will be
delivered. The patient will be discharged to home tomorrow Saturday 09/23 and will need an ambulance transport. OOH DNR will be needed on chart. Attending and Case management aware of plan.
--- NOTE | 2023-09-23 10:14 | CM ---
Addendum entered by Nasima Rizzo 09/23/23 11:09:
Ambulance pickup scheduled for 1100 tomorrow, 09/24/23
Addendum entered by Nasima Rizzo 09/23/23 10:33:
transport forms for ambulance sent via fax to [address] [place] [address] clerRachelle parmar
Original Note:
Plan: discharge tomorrow, 09/24/23, to Home with Hospice
Per manager of broadcast content, home hospice referral sent; Requested that arrange ambulance chicken picker @ 1100
[2023-09-23] MEDS: AMPICILLIN 104 MG IV ×2 (15:02→23:08)
[2023-09-23 16:07] VITALS: BP 118/51
[2023-09-23] MEDS: STERILE WATER FOR INJECTION 10 ML IV (20:12)
[2023-09-23] MEDS: ROCEPHIN 1000 MG IV (20:13)
[2023-09-23] MEDS: LIPITOR PO ×2 (21:23→21:28)
[2023-09-23] MEDS: REMERON PO ×2 (21:23→21:28)
[2023-09-23 22:50] VITALS: BP 116/53
[2023-09-24] MEDS: SYNTHROID PO (05:19)
[2023-09-24] MEDS: NSS 1000 IV (05:19)
[2023-09-24 06:00] VITALS: BMI 21.6
[2023-09-24 07:10] VITALS: BP 127/105
[2023-09-24] MEDS: PROTONIX IV 40 MG IV (08:19)
[2023-09-24] MEDS: MIRALAX PO (08:19)
[2023-09-24] MEDS: AMPICILLIN 104 MG IV (08:19)
[2023-09-24] MEDS: NSS (PRESERVATIVE FREE) 10 ML IV (08:19)
[2023-09-24] MEDS: VISBIOME PO (08:20)
--- NOTE | 2023-09-24 08:31 | W.PN.HOSP.TC ---
Today's Communication/Plan
-
dc
Assessment / Plan
Assessment / Plan
Physical Exam
General: in bed, non verbal , opens eyes and mumbles incoherent words
HEENT: Normocephalic and Other (mild bruising over bilateral eyebrows). Dry MM.
Respiratory: Clear and Non Labored Respirations
Cardiac: S1/S2 and Regular Rhythm
GI: Soft and Non Tender
Rectal: No bleeding
Musculoskeletal: No Clubbing, No Cyanosis and No Edema
Skin: Warm and Dry
Neuro: awake, + stiffness, pushing around and refusing care. Did not follow commands.
Psych: Agitated
#TME secondary to dehydration/ worsening dementia and UTI
She was l lethargic with stiffness. Gabapentin and Risperdal were held but she became combative and refusing care. Place her back on her home regimen.
s/p IVF
c/w Ativan PRN
Encourage oral intake
c/w Supportive care
Monitored temp curve, no fevers
-Finished 5 days of IV ceftriaxone
CT head no acute findings.
# UTI with E coli
Prior UTI with same microbe
Finished 5 days of IV Rocephin for E Coli and given Ampicillin for strep Viridans.
Added bladder scan to rule out retention, no significant retention, this morning was 190 cc.
Normal renal function
s/p mild IVF
# Constipation, c/w Senna
#Severe Dementia with prior history of sun-downing
Failure to thrive
Patient is very limited with 100% dependency on her caregiver which is the in this case. Most of the time, she has to be fed, cleaned and groomed at home by her . seems to be willing to continue care at home and wanting to
provide 24/7 private care at home. reported that his family would respect his decisions to maintain care at home.
Consulted social service to provide help as possible
From previous admission, this placement issue was brought before and decision was made by family to take patient home. reported that he was not happy with care at SNF before because of poor hygiene and care experience at nursing homes.
# Severe protein-caloric malnutrition
Chronic poor oral intake, helps feeding her, related to dementia
# Multiple falls, recurrent head injuries from falls
consulted social service
expressed his intention to continue care at home with private patient care manager and now agreed to hospice care. He reported that his children are supportive of his decisions.
Hyperlipidemia
-Continue statin
Hypothyroidism
-Continue levothyroxine
GERD
-Continue Protonix, changed to IV
Osteoarthritis
-Hold gabapentin due to lethargy
DVT proph: SCDs
Code Status: I d/w , explained the concept of full code/ DNR. Has very poor quality of life with advanced dementia. I do not recommend CPR/chest compressions. According to the , her living wishes included no ventilatory support.
He agreed to do DNR and pursue outpatient hospice care. Discussed with director of casework department. said he would be one to make decisions and not the children.
Total discharge time spent to see the patient, examine the patient on the floor, review data and lab results, discuss discharge plan with patient, director of casework department, nursing staff around 65 minutes
Anticipated Discharge: Today
Subjective/Interval History
-
Date of Service: September 24, 2023
She is agitated
Refusing to take her pills
Objective Data
-
Vital Signs:
Vital Signs
Temp Pulse Resp BP Pulse Ox
98.1 F 100 16 127/105 97
09/24/23 07:10 09/24/23 07:10 09/24/23 07:10 09/24/23 07:10 09/24/23 07:10
I&O
09/23/23 09/24/23 09/25/23
06:59 06:59 06:59
Intake Total 1020 / 1020 1928
Balance 1020 / 1020 1928
[2023-09-24] MEDS: NSS (PRESERVATIVE FREE) 0.25 ML IV (09:00)
[2023-09-24] MEDS: ATIVAN 0.5 MG IV (09:00)
--- NOTE | 2023-09-24 11:31 | CM ---
CM reviewed chart, patient for discharge home with Hospice and 24.7 care. Ambulance transport scheduled for 11:00 a.m. Out of Hospital DNR form signed by Hospitalist, placed on chart. IMM reviewed and signed with patients spouse. Update to
Hospice on patient discharge time. CM will continue to follow for all discharge planning needs.
Plan; home with Hospice and 24/7 caregivers, 11:00 a.m. ambulance transport.
--- NOTE | 2023-09-25 09:23 | W.DCSUMMARY ---
Discharge Summary
Discharge Data
Date of Admission: 09/19/23
Date of Discharge: 09/24/23
-
Pending Results: No
Hospital Course
83 years old female with advanced dementia admitted with worsening mentation, weakness and multiple falls at home. Patient was diagnosed with failure thrive, processive dementia. She had urinary tract infection. She did not have bacteremia. She
was treated with antibiotics and finished course of the treatment in the hospital. She was noted to have incomplete emptying of bladder with normal renal function. Patient was given intravenous fluid. Her mentation did not improve despite
treating the UTI and she was unable to express herself or communicate verbally. Per who was the caregiver, patient was declining at home and was taking benzodiazepine and Risperdal for her agitation. Scan of the head did not show acute
findings. She did not have fevers. Goal of care was discussed with the who was the decision maker. reported that his children respected and went by his decisions. he wanted to be the one making decisions. CODE STATUS was
explained to the and patient was made DO NOT RESUSCITATE/ DO NOT INTUBATE. wanted to make the patient comfortable and provide peace. met with pillowcase turner and hospice nurse. Plan was to discharge patient back to home
under hospice care. Patient was on home hospice in the past. [place] Was Placed for Comfort and Urinary Retention. Patient was discharged with [facility] hospice services.
Discharge Plan
-
Patient Disposition: Home with Hospice
Discharge Diagnosis/Procedures: Advanced dementia
Failure to thrive
UTI, finished course of treatment
Dehydration
Ambulatory dysfunction
Diet: As tolerated
Referrals:
Juan Barber MD [Family Provider] -
Prescriptions:
Continued
levothyroxine 50 MCG tablet
50 mcg PO DAILY
acetaminophen [Tylenol] 325 mg Tablet
650 mg PO Q6HPRN PRN (Reason: mild pain)
risperidone 0.25 mg Tablet
0.25 mg PO TID
lorazepam 0.5 mg Tablet
0.5 mg PO TID
Patient Comments:
09/19/23: last filled 08/10/23 for 270 tablets at [facility]
omeprazole 20 mg Capsule,Delayed Release(Dr/Ec)
20 mg PO DAILY
mirtazapine 15 mg Tablet
15 mg PO HS
gabapentin 100 mg Capsule
100 mg PO TID
Discontinued
aspirin 81 MG tablet,delayed release (DR/EC)
81 mg PO HS
sucralfate 1 GRAM tablet
1 g PO BID@1100,1600
simvastatin [Zocor] 40 mg Tablet
40 mg PO HS
calcium carbonate [Calcium 600] 600 mg calcium (1,500 mg) Tablet
600 mg PO DAILY@1100
Visbiome 112.5 billion cell Capsule
1 cap PO DAILY@1100
Unknown Bowel Med
1 dose PO DAILYPRN PRN (Reason: constipation, no bm 2 days)
Discharge Orders:
Discharge Patient (As Directed); Ordered 09/24/23
Ordered By: Breanna Hutson
Discharge Date and Time
Discharge Date/Time: 09/24/23 11:21
Print Language: BELIZEAN
== END 2023-09-24 11:21 | disposition hospice, home (50) | DRG 640 ==
LOC: 4 WEST ACU 15:25
PROVIDERS: Physician Assistant Medical; ADMITTING PHYSICIAN Internal Medicine; EMERGENCY PHYSICIAN Emergency Medicine; FAMILY PHYSICIAN Internal Medicine
DX: E86.0 Dehydration (principal); E43 Unspecified severe protein-calorie malnutrition; G92.8 Other toxic encephalopathy; N39.0 Urinary tract infection, site not specified; F03.C11 Unspecified dementia, severe, with agitation; I25.10 Atherosclerotic heart disease of native coronary artery without angina pectoris; Z51.5 Encounter for palliative care; E03.9 Hypothyroidism, unspecified; Z66 Do not resuscitate; E78.5 Hyperlipidemia, unspecified; K21.9 Gastro-esophageal reflux disease without esophagitis; R29.6 Repeated falls; R62.7 Adult failure to thrive; R33.9 Retention of urine, unspecified; B96.20 Unspecified Escherichia coli [E. coli] as the cause of diseases classified elsewhere; M19.90 Unspecified osteoarthritis, unspecified site; K59.00 Constipation, unspecified; Z68.21 Body mass index [BMI] 21.0-21.9, adult; Z79.890 Hormone replacement therapy; B95.4 Other streptococcus as the cause of diseases classified elsewhere; Z79.82 Long term (current) use of aspirin; Z79.899 Other long term (current) drug therapy
CPT/HCPCS: 70450; 72125; 72170; 80048; 80053; 81003; 81015; 82962; 83735; 84484; 85025; 85027; 87040; 87077; 87086; 87088; 87186; 93005; 96374; 97163; 97167; 97530; 99285